=== PATIENT | female | born 1935 | race Caucasian/White ===

== ENCOUNTER 2021-11-11 08:32 | Outpatient (CLI) | payer MEDICARE, SELFPAY | END 2021-11-11 08:33 | disposition home or self-care (01) | LOC: ANHAUDIO 08:38 | DX: I63.9 Cerebral infarction, unspecified (principal) | CPT/HCPCS: 99199 ==

== ENCOUNTER 2022-01-13 13:08 | Outpatient (CLI) | payer MEDICARE, SELFPAY | END 2022-01-13 13:09 | disposition home or self-care (01) | LOC: ANHAUDIO 13:11 | DX: I63.9 Cerebral infarction, unspecified (principal); H61.23 Impacted cerumen, bilateral | CPT/HCPCS: 99199 ==

== ENCOUNTER 2022-02-10 10:56 | Outpatient (CLI) | payer MEDICARE, SELFPAY | END 2022-02-10 10:57 | disposition home or self-care (01) | LOC: ANHAUDIO 10:58 | DX: I63.9 Cerebral infarction, unspecified (principal) | CPT/HCPCS: 92557; 92567 ==